=== PATIENT | female | born 1980 | race Caucasian/White ===

== ENCOUNTER 2023-06-22 14:23 | Emergency (ER) | payer OTHER ==
[~2023-06-22] VITALS: Ht 160 cm; Wt 77.1 kg
[2023-06-22 14:30] VITALS: BP_SYST 121; PULSE 104; RESP 19; TEMP 101.9; O2SAT 97
[2023-06-22] MEDS ORDERED: KETOROLAC TROMETHAMINE 30 MG VIAL IM ONE (15:00)
[2023-06-22] MEDS ORDERED: MAG-AL HYDROX/SIMETH 30 ML UDC PO ONE (15:00)
[2023-06-22] MEDS ORDERED: ONDANSETRON 4 MG ODT TAB PO ONE (15:00)
[2023-06-22 15:28] LABS: COVID19 ANTIGEN SOFIA FIA NEGATIVE (NEGATIVE)
[2023-06-22 15:33] LABS: INFLUENZA TYPE B NEGATIVE (NEGATIVE)
[2023-06-22 16:04] LABS: INFLUENZA TYPE A POSITIVE (NEGATIVE)
[2023-06-22] MEDS ORDERED: ONDA-8 TL (16:33)
[2023-06-22] MEDS ORDERED: NAPR-690 PO (16:33)
[2023-06-22] MEDS ORDERED: PHEDM120 PO (16:33)
[2023-06-22 16:42] VITALS: BP_SYST 121; PULSE 104; RESP 19; TEMP 101.9; O2SAT 97
== END 2023-06-22 16:41 | disposition home or self-care (01) ==
LOC: SED 14:23
DX: J10.1 Influenza due to other identified influenza virus with other respiratory manifestations (principal); R51.9 Headache, unspecified; R05.9 Cough, unspecified; M79.10 Myalgia, unspecified site; Z79.899 Other long term (current) drug therapy; Z20.822 Contact with and (suspected) exposure to COVID-19
CPT/HCPCS: 99284; 71045; 87426; 36415; 96372; 87804 ×2; Q0162; J1885